=== PATIENT | female | born 1990 | race Caucasian/White ===

== ENCOUNTER 2024-10-16 09:25 | Outpatient (AMB) | payer BC, OTHER, SELFPAY ==
[2024-10-16 09:45] VITALS: BP 99/62; PULSE 68; RESP 14; TEMP 36.6; O2SAT 99; BMI 20.7
--- NOTE | 2024-10-16 09:45 | AMB.GYNCLNOT ---
Vital Signs 10/16/24 09:45 Height 1.57 m Height Method Stated Weight 51.483 kg Weight Measurement Method Standing Scale BMI 20.7 BP 99/62 Blood Pressure Source Automatic Cuff Blood Pressure Location Left Upper Arm Position Sitting Respiration 14 Pulse 68 Pulse Source Monitor Temp 97.8 F Temp Source Oral Pulse Oximetry (%) 99 Oxygen Delivery Method Room Air Allergies/Home Meds Allergies & Medications Allergies No Known Allergies Allergy (Verified 10/16/24 09:47) Medication Reconciliation No Known Home Medications 10/16/24 [History Confirmed 10/16/24] Intake Visit Data Collection New Patient or Established: New Patient (never been to [facility]) Reason for Visit:: ANNUAL WELLNESS Seen by Clinical Staff ONLY (RN/MA): No Plumbing Mechanic Required: No Do You Feel Safe at Home: Yes Authorities Contacted: N/A PCP or OBGYN visit in last 3 months: No Hx Now: No Are you currently on any form of Control: Yes Last menstrual period: 10/10/24 Pain Present Currently: No Pain Scale Used: Martinez-Narvaez/Numerical Pain scale:: 0 Smoking Status Smoking Status: Never smoker Consumer Relations Complaint Clerk history Consumer Relations Complaint Clerk History Menstrual regularity: regular Flow: heavy Monthly: Yes How many days does period last: 4 Age at menarche: 11 Currently sexually active: Yes Additional comments: Using condoms for contraception 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 Other Relevant History: 2007 Back surgery for 2 herniated discs Questionnaires Covid-19 Vaccine Questionnaire Has patient been vacinated for Covid-19 Have you been vacinated for Covid-19: Yes PHQ-9 PHQ-2 Over the last 2 weeks, how often have you been bothered by any of the following problems? 1. Little interest or pleasure in doing things: not at all 2. Feeling down, depressed, or hopeless: not at all Total score: 0 PHQ-9 3. Trouble falling or staying asleep, or sleeping too much: Not at all 4. Feeling tired or having little energy: Not at all 5. Poor appetite or overeating: Not at all 6. Feeling bad about yourself - or that you are a failure or have let yourself or your family down: Not at all 7. Trouble concentrating on things, such as reading the newspaper or watching television: Not at all 8. Moving or speaking so slowly that other people could have noticed? - Or the opposite - being so fidgety or restless that you have been moving around a lot more than usual: not at all 9. Thoughts that you would be better off or of hurting yourself in some way: Not at all Total score: 0 Source: Developed by Drs. Ken Vera, Lilian Willoughby, Grzegorz Gayle and colleagues, with an educational samina from [employer]. 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 She used to see Dr. Busby in [place]. I actually did both of her vaginal deliveries. She has a 4-year-old son and a 7-year-old son. She had 1 miscarriage. 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 She is considering getting a vasectomy for her . She is using condoms for contraception denies declines any control pills at this time. She has no gynecological complaints and just presents for an annual exam. Review of Systems Review of Systems Narrative Review of Systems: No pelvic pain ,no abnormal uterine bleeding ,no urinary complaints Exam General Limitations: no limitations General Appearance: alert, in no apparent distress, comfortable, cooperative, healthy appearing, well developed and well groomed Neck Neck exam: Present normal inspection, full ROM and trachea midline Chest Chest inspection: Present normal inspection and symmetric chest wall rise Resp Respiratory exam: Present normal lung sounds bilaterally Card Cardiovascular exam: Present regular rate, normal rhythm and normal heart sounds Abdominal Abdominal exam: Present soft and normal bowel sounds External exam: Present normal external exam Speculum exam: Present normal speculum exam Bimanual exam: Present normal bimanual exam Extremities Extremities exam: Present normal inspection and full ROM Psych Psychiatric exam: Present normal affect and normal mood Skin Skin exam: Present warm, dry, intact and normal color Office Procedures OB Clinic LOC & Office Proc's Nursing/Assessment Patient Status: Initial/New Patient OB Clinic Nursing Assessment: Medication Reconciliation, Update PMH in EMR and Vital Signs OB Clinic Coordination of Care: Complex Care and Chronic Disease 1-5, Consent,records obtained, informed consent, Education Simp Pt/Fam, Lab and Imaging orders, Results/Orders obtained and Staff clarify orders Miscellaneous Interventions: Pelvic/Pap Smear Set up New Patient Charge New Patient Point Assignment: 1124 New Patient Point Charge: [employer] W[employer] WELL Level 4 ([id number]) Assessment & Plan Diagnosis / Problem List (1) Women's annual routine gynecological examination: Status: Acute Assessment and Plan: Pap high risk HPV performed , self breast exams encouraged. Patient will need screening mammogram closer to 38. She will follow-up yearly or as needed. SHANK STITCHER: Papsmear Pap Smear Procedure [place]one in room during procedure?: No Pre-op diagnosis general: Annual wellness exam Post-op diagnosis procedure note: Same Procedure Notes:: Pap with high-risk HPV performed Papsmear completed: yes
== END 2024-10-16 10:24 | disposition home or self-care (01) ==
PROVIDERS: Supervising Provider Obstetrics & Gynecology; Visit Provider Obstetrics & Gynecology
DX: Z01.419 Encounter for gynecological examination (general) (routine) without abnormal findings (principal); Z11.51 Encounter for screening for human papillomavirus (HPV)
CPT/HCPCS: 99204; G0463